=== PATIENT | female | born 1970 | race Caucasian/White ===

== ENCOUNTER 2017-02-28 23:39 | Emergency (ER) | payer OTHER ==
[~2017-02-28] VITALS: Ht 167.6 cm; Wt 68.0 kg
[2017-02-28 23:41] VITALS: BP 114/75; PULSE 98; RESP 16; TEMP 98.6; O2SAT 99
[2017-02-28] MEDS ORDERED: VENTAER INH (23:45)
[2017-02-28] MEDS ORDERED: NORE-43 PO (23:45)
[2017-02-28] MEDS ORDERED: WELLTAB39 PO (23:45)
[2017-03-01] MEDS ORDERED: SODIUM CHLOR 0.9% 1000 ML INJ 1,000 ML IV ONE (00:15)
[2017-03-01 00:20] LABS: AUTOMATED NEUTROPHIL # 6.7 TH/MM3 (1.8-7.7); BASOPHIL # 0.1 TH/MM3 (0-0.2); BASOPHIL % 0.7 % (0.0-2.0); EOSINOPHIL # 0.1 TH/MM3 (0-0.4); EOSINOPHIL % 1.1 % (0.0-4.0); HEMO FLAGS DIFF FINAL; LYMPH % 20.9 % (9.0-44.0); MEAN CELL VOLUME 94.7 FL (80.0-100.0); MEAN CORPUSCULAR HEMOGLOBIN 31.6 PG (27.0-34.0); MEAN CORPUSCULAR HGB CONC 33.4 % (32.0-36.0); MONO % 7.2 % (0.0-8.0); NEUT % 70.1 % (16.0-70.0); PLATELET COUNT 277 TH/MM3 (150-450); RED BLOOD COUNT 4.02 MIL/MM3 (4.00-5.30); RED CELL DISTRIBUTION WIDTH 12.3 % (11.6-17.2); WHITE BLOOD COUNT 9.6 TH/MM3 (4.0-11.0)
--- NOTE | 2017-03-01 00:23 | PD ---
HPI Chief Complaint: Syncope/Near-Syncope Time Seen by Provider: 23:40 Travel History International Travel<30 days: No Contact w/Intl Traveler<30days: No Traveled to known affect area: No History of Present Illness HPI Patient's 47 years old. She arrives by EMS due to a syncope event while she was at a bar this evening. She was drinking alcohol. She reports losing consciousness following which she felt like was an aura for migraine however she had no headache. She fell to the ground. She was helped up stating that she felt okay. She then lost consciousness a second time. She notes vomiting after the first lost consciousness. She reports decreased oral hydration for the past 2 days. She has no chest pain shortness of breath nausea vomiting or fever in the ER. EMS gave a liter of fluid and the patient states that that helped. EMS reports the blood pressure upon arrival was in the 60s. PFSH Past Medical History Asthma: Yes Anxiety: Yes Influenza Vaccination: No ?: Not LMP: February 2017 : 3 Para: 3 Past Surgical History Abdominal Surgery: Yes (abdominal plasty) Section: Yes (x1) Social History Alcohol Use: Yes Tobacco Use: No Substance Use: No Allergies-Medications (Allergen,Severity, Reaction): Coded Allergies: No Known Allergies (Unverified , 02/28/17) Reported Meds & Prescriptions Reported Meds & Active Scripts Active Reported Wellbutrin Xl 24 HR (Bupropion HCl) 300 Mg Tab 300 Mg PO DAILY Ventolin Hfa 18 GM Inh (Albuterol Sulfate) 90 Mcg/Act Aer 2 Puff INH Q4H PRN Microgestin Fe 1/20 (Norethindrone-Ethinyl Estradiol-Fe) 1-20 Mg-Mcg Tab 1 Tab PO DAILY Review of Systems Except as stated in HPI: all other systems reviewed are Neg Physical Exam Narrative GENERAL: 47-year-old female well-nourished and developed pleasant no acute distress SKIN: Focused skin assessment warm/dry. HEAD: Atraumatic. Normocephalic. EYES: Pupils equal and round. No scleral icterus. No injection or drainage. ENT: No nasal bleeding or discharge. Mucous membranes pink and moist. NECK: Trachea midline. No JVD. CARDIOVASCULAR: Regular rate and rhythm. No murmur appreciated. RESPIRATORY: No accessory muscle use. Clear to auscultation. Breath sounds equal bilaterally. GASTROINTESTINAL: Abdomen soft, non-tender, nondistended. Hepatic and splenic margins not palpable. MUSCULOSKELETAL: No obvious deformities. No clubbing. No cyanosis. No edema. No evidence DVT. NEUROLOGICAL: Awake and alert. No obvious cranial nerve deficits. Motor grossly within normal limits. Normal speech. PSYCHIATRIC: Appropriate mood and affect; insight and judgment normal. Data Data Last Documented VS Vital Signs Date Time Temp Pulse Resp B/P Pulse Ox O2 Delivery O2 Flow Rate FiO2 03/01/17 00:49 100 18 116/67 10 18 122/71 101 18 126/82 02/28/17 23:41 98.6 99 Vital signs reviewed Orders Electrocardiogram (02/28/17 23:42) Basic Metabolic Panel (Bmp) (02/28/17 23:42) Complete Blood Count With Diff (02/28/17 23:42) Magnesium (Mg) (02/28/17 23:42) Urinalysis - C+S If Indicated (02/28/17 23:42) Ecg Monitoring (02/28/17 23:42) Iv Access Insert/Monitor (02/28/17 23:42) Oximetry (02/28/17 23:42) Orthostatic Vital Signs (02/28/17 23:42) Sodium Chlor 0.9% 1000 Ml Inj (Ns 1000 M (03/01/17 00:15) Labs Laboratory Tests Test 02/28/17 23:55 White Blood Count 9.6 TH/MM3 Red Blood Count 4.02 MIL/MM3 Hemoglobin 12.7 GM/DL Hematocrit 38.0 % Mean Corpuscular Volume 94.7 FL Mean Corpuscular Hemoglobin 31.6 PG Mean Corpuscular Hemoglobin 33.4 % Concent Red Cell Distribution Width 12.3 % Platelet Count 277 TH/MM3 Mean Platelet Volume 7.3 FL Neutrophils (%) (Auto) 70.1 % Lymphocytes (%) (Auto) 20.9 % Monocytes (%) (Auto) 7.2 % Eosinophils (%) (Auto) 1.1 % Basophils (%) (Auto) 0.7 % Neutrophils # (Auto) 6.7 TH/MM3 Lymphocytes # (Auto) 2.0 TH/MM3 Monocytes # (Auto) 0.7 TH/MM3 Eosinophils # (Auto) 0.1 TH/MM3 Basophils # (Auto) 0.1 TH/MM3 CBC Comment DIFF FINAL Differential Comment Sodium Level 144 MEQ/L Potassium Level 3.5 MEQ/L Chloride Level 109 MEQ/L Carbon Dioxide Level 21.9 MEQ/L Anion Gap 13 MEQ/L Blood Urea Nitrogen 14 MG/DL Creatinine 1.10 MG/DL Estimat Glomerular Filtration 53 ML/MIN Rate Random Glucose 99 MG/DL Calcium Level 8.1 MG/DL Magnesium Level 1.8 MG/DL MDM Medical Decision Making Medical Screen Exam Complete: Yes Emergency Medical Condition: Yes Differential Diagnosis Vasovagal episode, anemia, arrhythmia, alcohol related complication Narrative Course CBC & BMP Diagram 02/28/17 23:55 EKG: sinus rate 96 normal axis/intervals The patient is resting comfortably and feels better, is alert and in no distress. The patients results and examination findings were discussed. The repeat examination is unremarkable and benign. The history, exam, diagnostic testing, and current condition do not suggest any significant pathology to warrant further testing, continued ED treatment, admission, or surgical evaluation at this point. The vital signs have been stable. The patient does not have uncontrollable pain, intractable vomiting, or other significant symptoms. The patient's condition is stable and appropriate for discharge. The patient will pursue further outpatient evaluation with a primary care physician or other designated or consulting physician as indicated in the discharge instructions. The patient expressed understanding and was agreeable with this plan. Diagnosis Primary Impression: Syncope and collapse Referrals: Engineering Department Chair call for appointment Additional Instructions: You have a choice when it comes to health care, and we are glad that you chose [facility]. Hopefully, we have met your expectations on today's visit. You are welcome to return to [facility] at any time, as we are committed to meeting the health care needs of our community. Med/Other Pt SpecificInfo: No Change to Meds Disposition: 01 DISCHARGE HOME Condition: Stable Russ Romero MD Mar 01, 2017 00:23
[2017-03-01 00:34] LABS: BICARBONATE 21.9 MEQ/L (21.0-32.0); MAGNESIUM 1.8 MG/DL (1.5-2.5); POTASSIUM 3.5 MEQ/L (3.5-5.1)
[2017-03-01 00:49] VITALS: BP_SYST 116; BP_SYST 122; BP_SYST 126; BP_DIAS 67; BP_DIAS 71; BP_DIAS 82; RESP 18
--- NOTE | 2017-03-03 18:17 | EKG ---
Date Performed: 02/28/2017 Time Performed: 23:53:21 PTAGE: 47 years EKG: Sinus rhythm NORMAL ECG NO PREVIOUS TRACING DOCTOR: Panda Ledesma Interpretating Date/Time 03/03/2017 18:13:16
== END 2017-03-01 01:16 | disposition home or self-care (01) ==
LOC: NEPE 23:39
DX: R55 Syncope and collapse (principal)
CPT/HCPCS: 80048; 83735; 85025; 93005; 96360; 99284; J7030